=== PATIENT | male | born 1950 | race Caucasian/White ===

== ENCOUNTER 2018-02-23 15:39 | Inpatient (IN) | payer OTHER, BC ==
[~2018-02-23] VITALS: Ht 175.3 cm; Wt 111.2 kg
[2018-02-23 16:27] LABS: BASOPHIL (%) 0.5 % (0-1); BASOPHIL COUNT 0.1 K/uL (0-0.1); EOSINOPHIL (%) 0.5 % (0-5); EOSINOPHIL COUNT 0.1 K/uL (0-0.3); HEMATOCRIT 43.8 % (38.0-50.0); HEMOGLOBIN 15.2 G/DL (12.5-16.6); IMMATURE GRANULOCYTE (%) 0.3 % (0.0-0.7); LYMPHOCYTE (%) 8.4 % (15-42); LYMPHOCYTE COUNT 1.3 K/uL (1.0-2.8); MCH 27.8 PG (29.0-34.0); MCHC 34.7 G/DL (30.0-36.0); MCV 80.1 FL (86-99); MONOCYTE (%) 6.7 % (3-12); NEUTROPHIL (%) 83.6 % (45-76); NEUTROPHIL COUNT 12.7 K/uL (1.8-6.4); PLATELET COUNT 258 K/uL (156-360); RBC DIS.WIDTH-CV 12.4 % (11.8-14.6); RBC DIS.WIDTH-SD 35.8 % (39-53); RED BLOOD COUNT 5.47 M/uL (4.00-5.50); WHITE BLOOD COUNT 15.2 K/uL (4.1-10.2)
[2018-02-23 16:39] LABS: ALBUMIN 4.7 g/dL (3.2-4.8); CHLORIDE 104 mEq/L (99-109); SODIUM 138 mEq/L (136-147)
[2018-02-23 16:41] LABS: GLUCOSE 282 mg/dL (70-99); TOTAL PROTEIN 7.8 g/dL (6.4-8.3)
[2018-02-23 16:43] LABS: TOTAL BILIRUBIN 1.2 mg/dL (0.0-1.0)
[2018-02-23 16:45] LABS: ALKALINE PHOSPHATASE 105 IU/L (3-129); CREATININE 1.9 mg/dL (0.6-1.3); GFR ESTIMATE (CALCULATED) 38 mL/min/ (58.99-99999)
[2018-02-23 16:46] LABS: UREA NITROGEN (BUN) 31 mg/dL (9-23)
[2018-02-23 16:47] LABS: AST (GOT) 27 IU/L (2-34)
[2018-02-23 16:48] LABS: ALT (GPT) 34 IU/L (3-49); CREATINE KINASE 175 IU/L (1-294); TOTAL CK 175 IU/L (1-294)
[2018-02-23 16:49] LABS: TROP-I INTERPRETATION NEGATIVE; TROPONIN-I < 0.01 ng/mL (0.0-0.30)
[2018-02-23 16:53] LABS: CK-MB 3.8 ng/mL (0.0-4.9)
[2018-02-23 17:04] LABS: POTASSIUM 6.3 mEq/L (3.7-5.4)
[2018-02-23 18:18] LABS: CKMB RELATIVE INDEX 2.2 (0.0-3.9)
[2018-02-23] MEDS ORDERED: ZOCOR40 MG PO (18:46)
[2018-02-23] MEDS ORDERED: TRULICITY1.5 MG/0.5 SC (18:47)
[2018-02-23] MEDS ORDERED: JANUVIA100 MG PO (18:47)
[2018-02-23] MEDS ORDERED: COREG6.25 M1 PO (18:47)
[2018-02-23] MEDS ORDERED: PRINIVIL10 MG PO (18:48)
[2018-02-23] MEDS ORDERED: AMARYL2 MG PO (18:48)
[2018-02-23] MEDS ORDERED: GLUCOPHAGE500 MG PO (18:48)
[2018-02-23] MEDS ORDERED: LO-DOSE ASPIRIN81 M1 PO (18:49)
[2018-02-23] MEDS ORDERED: PRESERVISION A1 EAC2 PO (18:51)
[2018-02-23 21:34] LABS: URIC ACID 9.3 mg/dL (3.1-9.2)
[2018-02-23 21:56] VITALS: BP 161/76
[2018-02-23 23:34] LABS: APPEARANCE CLEAR ((CLEAR)); BILIRUBIN NEGATIVE; BLOOD NEGATIVE; COLOR YELLOW ((YELLOW)); GLUCOSE (STRIP) >=500; KETONES 5; LEUKOCYTES NEGATIVE; NITRITE NEGATIVE; PROTEIN (STRIP) 30; SPECIFIC GRAVITY 1.017 (1.000-1.030); UCUL ADDED? NO; UROBILINOGEN 0.2 MG/DL (0.2-1.0)
[2018-02-24 00:54] LABS: CHLORIDE 106 mEq/L (99-109); POTASSIUM 4.8 mEq/L (3.7-5.4); SODIUM 140 mEq/L (136-147)
[2018-02-24 00:56] LABS: GLUCOSE 236 mg/dL (70-99)
[2018-02-24 01:00] LABS: CREATININE 1.7 mg/dL (0.6-1.3); GFR ESTIMATE (CALCULATED) 43 mL/min/ (58.99-99999)
[2018-02-24 01:01] LABS: UREA NITROGEN (BUN) 30 mg/dL (9-23)
[2018-02-24 04:01] VITALS: BP 123/60
[2018-02-24 06:03] LABS: HEMATOCRIT 36.7 % (38.0-50.0); MCH 27.3 PG (29.0-34.0); MCHC 33.2 G/DL (30.0-36.0); MCV 82.1 FL (86-99); NRBC (%) 0.5 /100 WBC (0-0); PLATELET COUNT 227 K/uL (156-360); RBC DIS.WIDTH-CV 13.1 % (11.8-14.6); RBC DIS.WIDTH-SD 38.9 % (39-53); RED BLOOD COUNT 4.47 M/uL (4.00-5.50); WHITE BLOOD COUNT 10.9 K/uL (4.1-10.2)
[2018-02-24 06:21] LABS: ALBUMIN 3.5 G/DL (3.2-4.8); CHLORIDE 108 MEQ/L (99-109); CREATININE 1.5 MG/DL (0.6-1.3); GFR ESTIMATE (CALCULATED) 50 mL/min/ (58.99-99999); GLUCOSE 156 mg/dL (70-99); PHOSPHORUS 4.4 mg/dL (2.5-4.9); POTASSIUM 4.7 MEQ/L (3.7-5.4); SODIUM 138 MEQ/L (136-147); UREA NITROGEN (BUN) 29 mg/dL (9-23)
[2018-02-24 06:33] LABS: HEMOGLOBIN 12.2 G/DL (12.5-16.6)
[2018-02-24 08:30] VITALS: BP 131/75
[2018-02-24 11:02] LABS: INTACT PARATHYROID HORMONE 37 pg/mL (10-69)
[2018-02-24 12:41] VITALS: BP 128/66
[2018-02-24 14:34] LABS: TROP-I INTERPRETATION NEGATIVE; TROPONIN-I < 0.01 ng/mL (0.0-0.30)
[2018-02-24 16:09] VITALS: BP 131/72
== END 2018-02-24 19:00 | disposition home or self-care (01) | DRG 641 ==
LOC: EME → EDBD 15:39 → EDOF 19:03 → 5SOUTH 19:03 → ENRESERV 19:09 → 5SOUTH 21:31
PROVIDERS: Emergency Medicine; Hospitalist; Internal Medicine Cardiovascular Disease
DX: E87.5 Hyperkalemia (principal); N17.9 Acute kidney failure, unspecified; E11.65 Type 2 diabetes mellitus with hyperglycemia; E87.2 Acidosis; E86.0 Dehydration; T67.5XXA Heat exhaustion, unspecified, initial encounter; X30.XXXA Exposure to excessive natural heat, initial encounter; Y92.008 Other place in unspecified non-institutional (private) residence as the place of occurrence of the external cause; I42.0 Dilated cardiomyopathy; I25.10 Atherosclerotic heart disease of native coronary artery without angina pectoris; I10 Essential (primary) hypertension; D72.829 Elevated white blood cell count, unspecified; I44.0 Atrioventricular block, first degree; J44.9 Chronic obstructive pulmonary disease, unspecified; K21.9 Gastro-esophageal reflux disease without esophagitis; E78.5 Hyperlipidemia, unspecified; E66.9 Obesity, unspecified; Z68.36 Body mass index [BMI] 36.0-36.9, adult; Z87.11 Personal history of peptic ulcer disease; Z82.49 Family history of ischemic heart disease and other diseases of the circulatory system
CPT/HCPCS: 71045; 80048 91; 80053; 80069; 81003; 82436; 82550; 82553; 82948; 83605; 83970; 84132 91; 84133; 84300; 84484; 84550; 85025; 85027; 93005; 93306; 99281; 99285; J1644; J7030; J7050